=== PATIENT | male | born 1985 | race African-American/Black ===

== ENCOUNTER 2019-07-25 10:46 | Emergency (ER) | payer SELFPAY ==
[~2019-07-25] VITALS: Ht 177.8 cm; Wt 68.0 kg
[2019-07-25] MEDS ORDERED: MORPHINE SULFATE 10 MG/ML CPJ IM ONE (11:15)
[2019-07-25] MEDS ORDERED: KETAMINE HCL 50 MG/ML 10ML IV ONE (12:45)
[2019-07-25] MEDS ORDERED: PROPOFOL 200MG/20ML VIAL IV ONE (12:45)
[2019-07-25] MEDS ORDERED: MORPHINE SULFATE 4 MG/ML CPJ (NOT FOR IM USE) IV ONE (12:45)
[2019-07-25 15:54] VITALS: BP 136/85
== END 2019-07-25 16:00 | disposition home or self-care (01) ==
LOC: ER 10:46
DX: S43.015A Anterior dislocation of left humerus, initial encounter (principal); Y04.0XXA Assault by unarmed brawl or fight, initial encounter; Y93.89 Activity, other specified; Y92.89 Other specified places as the place of occurrence of the external cause; Y99.8 Other external cause status
CPT/HCPCS: 23650; 73030; 73060; 96372; 96374; 99152; 99285; J2270; J2704; J3490; Z7610; L3670